=== PATIENT | male | born 1990 | race Caucasian/White ===

== ENCOUNTER 2016-12-08 18:26 | Emergency (ER) | payer BC ==
[~2016-12-08] VITALS: Ht 177.8 cm; Wt 106.3 kg
[2016-12-08 18:31] VITALS: TEMP 37; Ht 177.8 cm; Wt 106.3 kg
[2016-12-08 19:43] LABS: BUN/CREATININE RATIO 13.3 (10-20); CALCIUM 8.6 mg/dl (8.5-10.1); CREATININE 1.01 mg/dl (0.60-1.40); POTASSIUM 4.3 mmol/L (3.5-5.1)
--- NOTE | 2016-12-08 23:12 | EMERGENCY ROOM VISIT NOTE ---
History Report prepared by Luiz: Pallavi Rutherford Under the Supervision of: Dr. John Hernandez D.O. First contact with patient: 18:36 Chief Complaint: ALCOHOL OVERDOSE Stated Complaint: ETOH Nursing Triage Summary: Patient was drinking beer today at the tailgate and was staggering attempting to get into the game at the gate. 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 The patient states that he was drinking beer today at a tailgate. Per EMS the patient was staggering and was attempting to get into the game at the gate early. HPI limited secondary to intoxication. Source of History: patient, EMS History Limited By: intoxication Onset: POULTRY PICKER Position: other (global) Quality: other (alcohol intoxication) Timing: constant Note: Pt stumbling. Review of Systems See HPI for pertinent positives & negatives. A total of 10 systems reviewed and were otherwise negative. Past Medical & Surgical Medical Problems: (1) No Known Active Medical Problems Family History No pertinent family history stated. Social History Smoking Status: Never Smoker Marital Status: single Occupation Status: employed Current/Historical Medications Unable to Obtain Active Prescriptions or Reported Meds Physical Exam Vital Signs Date Time Temp Pulse Resp B/P (MAP) Pulse Ox O2 Delivery O2 Flow Rate FiO2 12/08/16 21:06 105 18 140/98 93 Room Air 12/08/16 20:00 96 12/08/16 19:24 99 16 136/81 93 Room Air 12/08/16 19:15 Room Air 12/08/16 18:36 Room Air 12/08/16 18:31 37.0 115 20 162/97 98 Room Air Physical Exam CONSTITUTIONAL/VITAL SIGNS: Reviewed / noted above. GENERAL: Non-toxic in appearance. INTEGUMENTARY: Warm, dry, and [place]. HEAD: Normocephalic. EYES: without scleral icterus or trauma. ENT/OROPHARYNX: clear and moist. LYMPHADENOPATHY/NECK: Is supple without lymphadenopathy or meningismus. RESPIRATORY: Lungs clear and equal. CARDIOVASCULAR: Regular rate and rhythm. GI/ABDOMEN: Soft and nontender. No organomegaly or pulsatile mass. No rebound or guarding. Normal bowel sounds. EXTREMITIES: Warm and well perfused. BACK: No CVA tenderness. NEUROLOGICAL: Intact without focal deficits. PSYCHIATRIC: normal affect. MUSCULOSKELETAL: Normally developed with good muscle tone. TRIAGE NURSING DOCUMENTATION REVIEWED. Medical Decision & Procedures Laboratory Results 12/08/16 19:10 Test 12/08/16 19:10 Anion Gap 9.0 mmol/L (3-11) Est Creatinine Clear Calc Drug Dose 136.5 ml/min Estimated GFR () 119.3 Estimated GFR (Non- 102.9 BUN/Creatinine Ratio 13.3 (10-20) Calcium Level 8.6 mg/dl (8.5-10.1) Ethyl Alcohol mg/dL 235.0 mg/dl (0-3) Laboratory results as stated above per my review. ED Course 1835: Previous medical records were reviewed. The patient was evaluated in room B12A. A complete history and physical examination was performed. 2312: On reevaluation, the patient is doing well. I discussed the results and findings with the patient. He verbalized agreement of the treatment plan. The patient was discharged home. Medical Decision There is no evidence of other toxic ingestions, trauma, anemia, hypoglycemia, head injury or intracranial pathology, meningitis, encephalitis, acute intrathoracic or abdominal pathology or other metabolic condition. This is a 26-year-old male who presents to the ED with a chief complaint of alcohol intoxication. Denies any trauma. The patient remained in an aspiration precaution position during his ED stay. The patient remained on the monitor without ectopy. Pulse ox was never shown any evidence of hypoxia. Blood pressure never showed significant hypotension. The patient was observed during his ED stay. He was observed for over 5 hours. The mental status improved and the patient was awake alert and oriented and was felt stable for discharge. Patient was discharged home. Medication Reconcilliation Current Medication List: was personally reviewed by me Blood Pressure Screening Patient's blood pressure: Elevated blood pressure Blood pressure disposition: Elevated BP felt to be situational Impression Primary Impression: Alcohol use with intoxication Scribe Attestation The scribe's documentation has been prepared under my direction and personally reviewed by me in its entirety. I confirm that the note above accurately reflects all work, treatment, procedures, and medical decision making performed by me. Departure Information Dispostion Home / Self-Care Prescriptions Unable to Obtain Active Prescriptions or Reported Meds Patient Instructions Alcohol Intoxication - [facility], [facility] Emergency Department: [employer] Students and Alcohol Related Visits , My [facility] Additional Instructions Avoid excessive alcohol consumption. Follow-up with your doctor for further care and evaluation in 1-2 days. Return to the emergency department for worsening or new symptoms or any concerns. You have been examined and treated today on an emergency basis only. This is not a substitute for, or an effort to provide, complete comprehensive medical care. It is impossible to recognize and treat all injuries or illnesses in a single emergency department visit. It is therefore important that you follow up closely with your doctor. Call as soon as possible for an appointment.
[2016-12-08 23:24] VITALS: BP 140/93; PULSE 107; O2SAT 99
== END 2016-12-08 23:32 | disposition home or self-care (01) ==
LOC: EDBD 18:26 → C.EDB 18:27 → C.ED 23:32
DX: F10.129 Alcohol abuse with intoxication, unspecified (principal); Y90.8 Blood alcohol level of 240 mg/100 ml or more